=== PATIENT | male | born 1990 | race Two or more races ===

== ENCOUNTER 2022-05-04 09:20 | Emergency (ER) | payer OTHER ==
[~2022-05-04] VITALS: Ht 165.1 cm; Wt 48.5 kg
[2022-05-04] MEDS ORDERED: MUPIROCIN22 GM TOP (10:50)
[2022-05-04] MEDS ORDERED: BACTRIM DS TAB1 EACH PO (10:50)
[2022-05-04] MEDS ORDERED: HIBICLENS118 ML TOP (10:50)
== END 2022-05-04 12:38 | disposition home or self-care (01) ==
LOC: ER 09:20
DX: L03.317 Cellulitis of buttock (principal); B96.5 Pseudomonas (aeruginosa) (mallei) (pseudomallei) as the cause of diseases classified elsewhere